=== PATIENT | female | born 1985 | race Caucasian/White ===

== ENCOUNTER 2017-05-10 06:35 | Day surgery (SDC) | payer OTHER ==
[2017-05-03 12:40] LABS: APPEARANCE,URINE CLEAR; BILIRUBIN,URINE NEGATIVE (NEGATIVE); GLUCOSE, URINE NEGATIVE (NEGATIVE); KETONES,URINE NEGATIVE (NEGATIVE); LEUKOCYTE ESTERASE,URINE NEGATIVE (NEGATIVE); NITRITE,URINE NEGATIVE (NEGATIVE); PROTEIN,URINE NEGATIVE (NEGATIVE); URINE SPECIFIC GRAVITY 1.004; UROBILINOGEN,URINE NEGATIVE mg/dL (<2.0)
[2017-05-03 12:45] LABS: HEMOGLOBIN 13.9 g/dL (12.0-15.5); HGB HCT DIFFERENCE -0.3; MEAN CORPUSCULAR HEMOGLOBIN 29.8 pg (27.0-33.4); MEAN CORPUSCULAR VOLUME 90 fl (80-97); RED BLOOD COUNT 4.65 10^6/uL (3.72-5.28); RED CELL DISTRIBUTION WIDTH 13.5 % (11.5-14.0); WHITE BLOOD COUNT 13.7 10^3/uL (4.0-10.5)
[~2017-05-10 06:35] MED LIST: CEFAZOLIN 2 GM/D5W RTU 2 GM/50 ML RTUPB IV PRN; LACTATED RINGERS 1000 ML IV PRN; LIDOCAINE 0.5% INJ-PF (5 MG/ML) 50 ML SDV SUBCUT PRN
[2017-05-10] MEDS ORDERED: FENTANYL CITRATE INJ/PF 100 MCG/2 ML AMPUL ONE ×2 (06:40→09:31)
[2017-05-10] MEDS ORDERED: EPHEDRINE SULFATE INJ 50 MG/1 ML AMPULE ONE (06:41)
[2017-05-10] MEDS ORDERED: MIDAZOLAM 2 MG/2 ML INJ ONE (06:41)
[2017-05-10] MEDS ORDERED: PROPOFOL INJ 200 MG/20 ML VIAL IV ONE (06:41)
[2017-05-10] MEDS ORDERED: IBUPROFEN INJ 800 MG/8 ML VIAL IV ONE (06:42)
[2017-05-10] MEDS ORDERED: KETOROLAC TROMETHAMINE 60 MG/2 ML SDV ONE (06:43)
[2017-05-10] MEDS ORDERED: FENTANYL CITRATE INJ/PF 100 MCG/2 ML AMPUL IV PRN ×3 (08:46)
[2017-05-10] MEDS ORDERED: DIPHENHYDRAMINE HCL 50 MG/ML VIAL IV PRN (08:46)
[2017-05-10] MEDS ORDERED: ONDANSETRON HCL INJ/PF 4 MG/2 ML SDV IV PRN (08:46)
[2017-05-10] MEDS ORDERED: ACETAMINOPHEN 100 ML IV ONE (08:55)
[2017-05-10] MEDS ORDERED: HYDROMORPHONE HCL INJ/PF 2 MG/ML AMPULE IV PRN (09:29)
[2017-05-10] MEDS ORDERED: RINGERS SOLUTION,LACTATED 1,000 ML IV PRN (09:30)
[2017-05-10] MEDS ORDERED: OXYCODONE HCL IR 5 MG TABLET PO PRN ×2 (09:30)
--- NOTE | 2017-05-10 09:35 | OPERATIVE REPORT E ---
Operative Report NAME: ANY CHILDS : 1985 AGE: 31Y DATE OF SURGERY: 05/10/2017 ROOM: PREOPERATIVE DIAGNOSIS: Abnormal uterine bleeding with suspected cervical fibroid and possible endometrial polyp. OPERATION PERFORMED: Hysteroscopy, myomectomy, D and C. SURGEON: ANY BORJA M.D. ANESTHESIA: General via laryngeal mask. FINDINGS: There was approximately a 3-cm pedunculated fibroid which was hanging within the patient's cervix. There was some slightly irregular endometrium with possible endometrial polyps. The ostia were visualized after the D and C on both sides, and the cavity otherwise appeared normal. ESTIMATED BLOOD LOSS: 50 mL. SPECIMEN TO PATHOLOGY: Fibroid in 1 container and possible polyp/endometrial curettings in another. DESCRIPTION OF PROCEDURE: After discussing risks, benefits, and alternatives of the procedure and obtaining informed consent, the patient was taken to the operating room where anesthesia was achieved. She was positioned in the dorsal lithotomy position, prepped and draped in a standard fashion. The speculum was placed within the vagina. The anterior aspect of the cervix was grasped. On attempt to dilate it, it was realized that the cervix was actually fairly thin and that a fibroid that was approximately 3 cm in diameter was sitting within the cervix. The cervix was dilated to approximately 1.5 cm and a Karen clamp was applied to the fibroid. Using a #11 blade, the fibroid was cored out. The Karen was applied to the remaining fibroid within the cervix. At this point it was able to be pulled out through the cervix. A #1 Vicryl Endoloop was placed around the base of the fibroid and cinched down and the fibroid avulsed. During this process the Endoloop came off; however, the tissue seemed to be hemostatic. Next, the hysteroscope was placed within the endometrial cavity and the cavity surveyed. The findings were as noted above. Using a curette the cavity was curetted until it felt clean. The hysteroscope was replaced and the cavity was confirmed to be clean. A small amount of oozing was noted after removing the hysteroscope. Pressure was held with a sponge stick and Monsel was obtained and put at the tenaculum site and external cervical os. Excellent hemostasis was then observed. The patient was taken out of dorsal lithotomy and awakened from anesthesia. She was taken to recovery in stable condition. All sponge, needle, lap and instrument counts were correct x2. DICTATING PHYSICIAN: ANY BORJA M.D. [id number] PHY#: [id number] ID: [id number] JOB#: [id number] ACCT: [id number] cc:ANY BORJA M.D. > [facility]
[2017-05-10 11:35] VITALS: BP 110/65
[2017-05-10] MEDS ORDERED: GLYCOPYRROLATE INJ 0.4 MG/2 ML VIAL ONE (13:36)
[2017-05-10] MEDS ORDERED: SUCCINYLCHOLINE CHLORIDE INJ 200 MG/10 ML VIAL ONE (13:36)
[2017-05-10] MEDS ORDERED: ONDANSETRON HCL INJ/PF 4 MG/2 ML SDV ONE (13:36)
[2017-05-10] MEDS ORDERED: LIDOCAINE 2% INJ-PF (20 MG/ML) 10 ML AMPUL ONE (13:36)
[2017-05-10] MEDS ORDERED: DEXAMETHASONE SOD PHOSPHATE INJ 4 MG/1 ML VIAL ONE (13:36)
== END 2017-05-10 11:15 | disposition home or self-care (01) ==
LOC: OROUT 06:35
PROVIDERS: ATTEND Specialist
PROC: 0UBC7ZX Excision of Cervix, Via Natural or Artificial Opening, Diagnostic (ICD-10-PCS; 2017-05-10)
PROC: 0UDB8ZX Extraction of Endometrium, Via Natural or Artificial Opening Endoscopic, Diagnostic (ICD-10-PCS; principal; 2017-05-10 08:30)
DX: D25.9 Leiomyoma of uterus, unspecified (principal); N84.0 Polyp of corpus uteri; N92.0 Excessive and frequent menstruation with regular cycle; Z88.0 Allergy status to penicillin; Z79.3 Long term (current) use of hormonal contraceptives
CPT/HCPCS: 36415; 85027; 81025; 81001; 88305 ×2; 58558; 58145; J2250; J1100; J3010; J0330; J2405; J2704; J3490; J0690; J0131; 952; J1741; J1885